=== PATIENT | male | born 1990 | race Asian ===

== ENCOUNTER 2016-05-28 16:17 | Emergency (ER) | payer OTHER ==
[2016-05-28 16:25] VITALS: BP 125/59
[2016-05-28] MEDS ORDERED: AZITHROMYCIN 250 MG TABLET PO STA (16:36)
[2016-05-28] MEDS ORDERED: cefTRIAXone 250 MG VIAL IM STA (16:36)
[2016-05-28 16:38] LABS: BILIRUBIN,URINE NEGATIVE (NEGATIVE); PH,URINE 7.5 PH (5.0-7.5)
[2016-05-28 16:40] LABS: UA w/ MICROSCOPIC CHARGE YES
--- NOTE | 2016-05-28 16:41 | ED Physician Documentation ---
PD HPI MALE - Stated complaint Stated Complaint: MALE - Chief complaint Chief Complaint: General - History obtained from History obtained from: Patient - History of Present Illness Timing - onset: Today Timing - duration: Days (1) Timing - details: Abrupt onset Pain level max: 4 Pain level now: 4 Associated symptoms: Dysuria, Discharge (clear/green). No: Hematuria, Genital sore / lesion, Testiclar pain, Scrotal swelling, Abdominal pain PD HPI MALE CONTRIB FACTORS: Sexually active, Other (has had changes in sexual partners over the past few months, doesn't always use condoms) Similar symptoms before: Diagnosis (gonorrhea/chlamydia) Recently seen: Not recently seen Review of Systems Constitutional: denies: Fever, Chills Respiratory: denies: Cough GI: denies: Abdominal Pain, Nausea, Vomiting, Diarrhea Skin: denies: Rash Musculoskeletal: denies: Neck pain, Back pain Neurologic: denies: Headache PD PAST MEDICAL HISTORY - Past Medical History Past Medical History: No - Past Surgical History Past Surgical History: No - Allergies Allergies/Adverse Reactions: Allergies Allergy/AdvReac Type Severity Reaction Status Date / Time No Known Drug Allergies Allergy Verified 07/27/14 22:08 - Social History Does the pt smoke?: Yes Smoking Status: Current some day smoker Does the pt drink ETOH?: No Does the pt have substance abuse?: No - Immunizations Immunizations are current?: Yes - POLST Patient has POLST: No PD ED PE NORMAL - Vitals Vital signs reviewed: Yes - General General: Alert and oriented X 3, No acute distress, Well developed/nourished - Male Male : Other (slight green discharge from the urethral meatus. o/w normal genital exam. no testicular tenderness, LAD, or skin changes.) - Derm Derm: Warm and dry - Neuro Neuro: Alert and oriented X 3 Results - Vitals Vitals: Vital Signs - 24 hr 05/28/16 16:24 Temperature 36.5 C Heart Rate 69 Respiratory 16 Rate Blood Pressure 125/59 L O2 Saturation 98 Oxygen O2 Source Room air - Labs Labs: Laboratory Tests 05/28/16 16:33 Urine Color YELLOW Urine Clarity HAZY Urine pH 7.5 Ur Specific Elim 1.015 Urine Protein NEGATIVE Urine Glucose (UA) NEGATIVE Urine Ketones NEGATIVE Urine Occult Blood NEGATIVE Urine Nitrite NEGATIVE Urine Bilirubin NEGATIVE Urine Urobilinogen 0.2 (NORMAL) Ur Leukocyte Esterase TRACE H Urine RBC 0-5 Urine WBC 6-10 H Ur Squamous Epith Cells RARE Squamous Urine Bacteria Moderate H Ur Microscopic Review INDICATED Urine Culture Comments INDICATED PD MEDICAL DECISION MAKING - ED course Complexity details: reviewed results, re-evaluated patient, considered differential, d/w patient ED course: Patient presents to the emergency department with what appears to be either a gonococcal or chlamydial urethritis. Given Rocephin and azithromycin here. Testing was also performed. He was informed that he needs to be retested to ensure the infection clears. He is also informed that he needs to discuss this with his sexual partner so they can be tested and potentially treated as well. Patient counseled regarding signs and symptoms for which I believe and urgent re -evaluation would be necessary. Patient with good understanding of and agreement to plan and is comfortable going home at this time This document was made in part using voice recognition software. While efforts are made to proofread this document, sound alike and grammatical errors may occur. Departure - Departure Disposition: 01 Home, Self Care Clinical Impression: STD (male), Acute gonococcal urethritis Condition: Good Instructions: ED Chlamydia GC Poss Culture Pend Follow-Up: your,doctor in 2 weeks for repeat testing [Other] Comments: You were treated with azithromycin and Rocephin today. You should follow-up with your doctor for repeat testing to ensure the infection is cleared. The gonorrhea and Chlamydia tests will take 2-3 days to return and you will receive a phone call if they are positive. You should inform your sexual partners to be tested as well. You should have further STD testing including HIV testing performed with your doctor. Use condoms for sexual activity.
[2016-05-28] MEDS ORDERED: AZITHROMYCIN 250 MG TABLET PO ONE (16:45)
[2016-05-28] MEDS ORDERED: LIDOCAINE-MPF 1% 5 ML VIAL ONE (16:45)
[2016-05-28] MEDS ORDERED: cefTRIAXone 250 MG VIAL ONE (16:45)
[2016-05-28 16:47] LABS: UR CULTURE IF IND INDICATED
[2016-05-30 20:03] LABS: C.TRACHOMATIS BY TMA Negative (Negative)
[2016-05-31 10:37] LABS: N.GONORRHOEAE BY TMA Positive (Negative)
== END 2016-05-28 17:04 | disposition home or self-care (01) ==
LOC: ED 16:17
DX: A54.01 Gonococcal cystitis and urethritis, unspecified (principal); F17.200 Nicotine dependence, unspecified, uncomplicated
CPT/HCPCS: 81001; 87086; 87491; 87591; 96372; 99282; 99283; A9270; 81003